=== PATIENT | male | born 1950 | race Caucasian/White ===

== ENCOUNTER 2018-04-09 09:02 | Inpatient (IN) | payer BC ==
[~2018-04-09] VITALS: Ht 190.5 cm; Wt 90.7 kg
[~2018-04-09 09:02] MED LIST: ALBU8.5H8 IH; ASPI81TA31 PO; CARV3.122 PO; FLUT1DIS28 INH; FURO-152 PO; HYDR-548 PO; LISI2.5T2 PO; PANT40TA2 PO; SIMV10TA6 PO; TAMS-3 PO
--- NOTE | 2018-04-09 09:27 | NUR ---
Dr Santoro is doing the MSE@this time.
[2018-04-09] MEDS ORDERED: NITR0.4T48 SL (09:35)
[2018-04-09] MEDS ORDERED: ASPI-612 PO (09:35)
[2018-04-09 10:00] LABS: CREATININE 1.9 mg/dL (0.6-1.3); POTASSIUM 3.6 mmol/L (3.5-5.1)
[2018-04-09] MEDS ORDERED: NITROGLYCERIN 0.4 MG/TAB BOTTLE SL ONE ×2 (10:15→10:26)
[2018-04-09] MEDS ORDERED: FUROSEMIDE 20 MG/2 ML VIAL IV ONE (10:15)
[2018-04-09 10:16] LABS: BILIRUBIN,DIRECT 0.7 mg/dL (0.0-0.2); TOTAL PROTEIN, SERUM 7.1 g/dL (6.4-8.2)
[2018-04-09 10:23] LABS: BASOPHILS % (AUTO) 0.3 % (0.0-2.0); EOSINOPHILS # (AUTO) 0.1 K/uL (0.0-0.7); EOSINOPHILS % (AUTO) 0.7 % (0.0-7.0); HEMATOCRIT 41.1 % (36.7-47.1); HEMOGLOBIN 13.9 g/dL (12.5-16.3); LYMPHOCYTES # (AUTO) 2.2 K/uL (20.0-40.0); LYMPHOCYTES % (AUTO) 17.4 % (20.5-51.5); MEAN CORPUSCULAR HEMOGLOBIN 31.4 uug (23.8-33.4); MEAN CORPUSCULAR HGB CONC 34 g/dL (32.5-36.3); MONOCYTES # (AUTO) 0.8 K/uL (2.0-10.0); MONOCYTES % (AUTO) 6.6 % (0.0-11.0); NEUTROPHILS # (AUTO) 9.6 K/uL (1.8-8.9); PLATELET COUNT (AUTO) 180 K/uL (152-348); RED BLOOD CELL COUNT(AUTO) 4.42 MIL/uL (4.06-5.63); WHITE BLOOD COUNT (AUTO) 12.8 K/uL (3.6-10.2)
[2018-04-09] MEDS ORDERED: FUROSEMIDE 40 MG/4 ML VIAL ONE (10:25)
[2018-04-09] MEDS ORDERED: ASPIRIN 81 MG TAB.CHEW ONE (10:25)
[2018-04-09] MEDS ORDERED: ASPIRIN 81 MG TAB.CHEW PO ONE (10:30)
--- NOTE | 2018-04-09 10:36 | NUR ---
Patient insisted to walk to bathroom to void. Urinal provided.
[2018-04-09] MEDS ORDERED: NITROGLYCERIN OINT 1 GM PACKET TP ONE ×2 (11:28→11:45)
--- NOTE | 2018-04-09 11:50 | NUR ---
Patient is eating lunch tray with good appetite.
[2018-04-09 12:29] VITALS: BP 111/73
--- NOTE | 2018-04-09 12:35 | NUR ---
NEW PATIENT TO ROOM 206 AWAKE ALERT ORTX4 COOPERATE WELLNO SOB OR PAIN AT THIS TIME VS TAKEN STABLE RA O2 SAT WAS 97% ON FALL PRECAUTION CALL MEDLEY IN REACH ANDINSTRUCTION TO CALL WHEN NEEDED
--- NOTE | 2018-04-09 13:00 | NUR ---
DR AURORA BOWMAN SEEN PATIENT AT THIS TIME
[2018-04-09] MEDS ORDERED: MAGNESIUM HYDROXIDE 30 ML LIQUID UDC PO PRN (13:30)
[2018-04-09] MEDS ORDERED: ACETAMINOPHEN 325 MG TABLET PO PRN (13:30)
[2018-04-09] MEDS ORDERED: ONDANSETRON 4 MG/2 ML VIAL IV PRN (13:30)
[2018-04-09] MEDS ORDERED: ZOLPIDEM 5 MG TABLET PO PRN (13:30)
[2018-04-09] MEDS ORDERED: Z GUARD REMEDY PASTE 57 GM TUBE TOP PRN (13:30)
[2018-04-09] MEDS ORDERED: HYDROCODONE/APAP 5-325MG TABLET PO PRN (13:30)
[2018-04-09] MEDS ORDERED: NITROGLYCERIN 0.4 MG/TAB BOTTLE SL PRN (13:30)
[2018-04-09 13:35] VITALS: BP 96/62
--- NOTE | 2018-04-09 13:45 | NUR ---
PATIENT C/O CHEST PAIN VS TAKEN BP WAS LOWER BUT STABLE DT COLBY LENTZ INFORM AND WILLSTART BUMEX HUMZA ORDER ,PHAMACY WAS CALLTO GET MEDICATION AND CLOSED OBSERVATION
--- NOTE | 2018-04-09 14:00 | NUR ---
STATE FEELBETTER NOPAIN PO FLD CHUN MOD AMT NO N/V
[2018-04-09] MEDS ORDERED: BUMETANIDE INJ 6 MG in IV DEXTROSE 5% 36 ML IV ONE (15:00)
[2018-04-09 16:35] VITALS: BP 104/63
--- NOTE | 2018-04-09 17:30 | NUR ---
STABLE CONDITION ,PAIN UNDER CONTROL NO ACUTE DISTRESS CONTINUE BUMEX IV PB SAFETY AND COMFORT MEASURE PROVIDED CALL MEDLEY WITHIN REACH
[2018-04-09] MEDS: CARVEDILOL 3.125 MG TABLET PO SCH (17:49)
[2018-04-09] MEDS ORDERED: POTASSIUM CHLORIDE 20 MEQ TAB.PRT.SR PO ONE (19:00)
--- NOTE | 2018-04-09 20:00 | NUR ---
Received pt alert and oriented x 3, in no acute distress. Made aware of plan of care. Tele noted to be sinus rhythm with occasional PVC's/PAC's. Safe environment implemented.
[2018-04-09 20:09] VITALS: BP 98/64
[2018-04-09] MEDS: SIMVASTATIN 10 MG TABLET PO SCH (20:47)
[2018-04-09] MEDS: TAMSULOSIN HCL 0.4 MG CAP.SR.24H PO SCH (20:47)
[2018-04-09] MEDS ORDERED: FLUTICASONE/SALMETEROL 250/50 INHALER INH SCH (21:00)
[2018-04-10 00:22] VITALS: BP 102/58
[2018-04-10 04:35] VITALS: BP 107/55
[2018-04-10] MEDS: PANTOPRAZOLE SODIUM 40 MG TABLET.DR PO SCH (06:21)
[2018-04-10 06:31] LABS: BASOPHILS % (AUTO) 0.3 % (0.0-2.0); EOSINOPHILS # (AUTO) 0.2 K/uL (0.0-0.7); EOSINOPHILS % (AUTO) 1.6 % (0.0-7.0); HEMATOCRIT 40.7 % (36.7-47.1); HEMOGLOBIN 13.6 g/dL (12.5-16.3); LYMPHOCYTES # (AUTO) 2.3 K/uL (20.0-40.0); LYMPHOCYTES % (AUTO) 16.8 % (20.5-51.5); MEAN CORPUSCULAR HEMOGLOBIN 31.3 uug (23.8-33.4); MEAN CORPUSCULAR HGB CONC 33 g/dL (32.5-36.3); MEAN CORPUSCULAR VOLUME 93.9 fL (73.0-96.2); MONOCYTES % (AUTO) 7.2 % (0.0-11.0); NEUTROPHILS # (AUTO) 10.3 K/uL (1.8-8.9); NEUTROPHILS % (AUTO) 74.1 % (38.5-71.5); PLATELET COUNT (AUTO) 155 K/uL (152-348); RED BLOOD CELL COUNT(AUTO) 4.34 MIL/uL (4.06-5.63); WHITE BLOOD COUNT (AUTO) 13.9 K/uL (3.6-10.2)
--- NOTE | 2018-04-10 06:35 | NUR ---
Stable condition. Tele noted to be sinus rhythm with occasional PAC's/PVC's. Safe environment implemented. Pt aware of plan of care.
--- NOTE | 2018-04-10 06:44 | NUR ---
Per tele monitor, pt had occasional runs of a-fib. No s/s of distress.
--- NOTE | 2018-04-10 08:00 | NUR ---
AWAKE ALERT COOPERATE WELL NO SOB OR CHEST PAIN RESTING WELL WITH CALL LIGHT IN REACH AND EAT BREAKFAST WELL THIS AM
[2018-04-10 08:22] LABS: CREATININE 1.6 mg/dL (0.6-1.3); MAGNESIUM 1.6 mg/dL (1.8-2.4); PHOSPHOROUS 2.6 mg/dL (2.5-4.9); POTASSIUM 3.6 mmol/L (3.5-5.1)
[2018-04-10] MEDS: ASPIRIN 325 MG TABLET PO SCH (08:41)
[2018-04-10] MEDS: FLUTICASONE/VILANTEROL 1 EACH BLST.W.DEV INH SCH (08:42)
[2018-04-10] MEDS: CARVEDILOL 3.125 MG TABLET PO SCH ×2 (08:42→17:48)
[2018-04-10] MEDS: LISINOPRIL 5 MG TABLET PO SCH (09:26)
[2018-04-10] MEDS ORDERED: FUROSEMIDE 20 MG/2 ML VIAL IV ONE (11:15)
[2018-04-10 11:35] VITALS: BP 95/55
[2018-04-10] MEDS: MAGNESIUM SULFATE/D5W 100 ML IV SCH ×2 (12:02→13:33)
--- NOTE | 2018-04-10 15:30 | NUR ---
DR RUTH SEEN PATIENT AND ORDER TO D/C [facility] AT THIS TIME
[2018-04-10 15:35] VITALS: BP 91/62
[2018-04-10] MEDS ORDERED: IPRATROPIUM BROMIDE 0.5 MG/2.5 ML NEBU NEB PRN (15:45)
[2018-04-10] MEDS ORDERED: ALBUTEROL SULFATE 2.5 MG/3 ML NEBU NEB PRN (15:45)
[2018-04-10] MEDS: FUROSEMIDE 20 MG/2 ML VIAL IV SCH (16:00)
[2018-04-10] MEDS ORDERED: CEFTRIAXONE 1 G in IV DEXTROSE 5% 50 ML IV SCH (17:00)
--- NOTE | 2018-04-10 17:30 | NUR ---
STABLE HEMODYNAMIC STATUS ,NO ACUTE DISTRESS ,PAIN UNDER CONTROL SAFET AND COMFORT MEASURE PROVIDED CALL LIGHT IN REACH
[2018-04-10 19:15] LABS: *BILIRUBIN,URIN NEGATIVE (NEGATIVE); *BLOOD, URINE NEGATIVE (NEGATIVE); *CLARITY,URINE SLIGHTLY CLOUDY (CLEAR); *COLOR,URINE YELLOW (YELLOW); *KETONES,URINE NEGATIVE (NEGATIVE); *PROTEIN,URINE NEGATIVE (NEGATIVE); LEUKOCYTE ESTERASE ,URINE NEGATIVE (NEGATIVE); NITRITE, URINE NEGATIVE (NEGATIVE); PH,URINE 5.5 (5.0-8.0); UGLUCOSE NEGATIVE (NEGATIVE)
[2018-04-10 19:20] LABS: BACTERIA,URINE NONE SEEN /HPF (NONE SEEN); RBC,URINE 0-3 /HPF (0-3); SQUAMOUS EPITHELIAL CELL,UR FEW /HPF (NONE SEEN); WBC,URINE 0-3 /HPF (0-3)
--- NOTE | 2018-04-10 19:51 | NUR ---
Received pt alert and oriented x3, denies pain and in no acute distress. Pt made aware of plan of care. Safe environment implemented. Call light within reach.
--- NOTE | 2018-04-10 20:00 | NUR ---
Received pt from [facility] for continuity of care. Received pt in bed, AAO x 4 watching television. No acute distress noted. Verbally responsive and able to make needs known. Noted with R wrist IV 20g heplock, patent and intact. Denies pain or discomfort at this time. All safety measures and fall precautions maintained. Call light and all personal belongings within reach. Will continue to monitor.
[2018-04-10 20:05] VITALS: BP 98/56
[2018-04-10] MEDS: TAMSULOSIN HCL 0.4 MG CAP.SR.24H PO SCH (20:37)
[2018-04-10] MEDS: SIMVASTATIN 10 MG TABLET PO SCH (20:37)
[2018-04-11 05:06] LABS: HEPATITIS A AB, IgM Negative (Negative); HEPATITIS B SURFACE AG Negative (Negative)
[2018-04-11 05:09] VITALS: BP 114/69
[2018-04-11] MEDS: PANTOPRAZOLE SODIUM 40 MG TABLET.DR PO SCH (06:19)
[2018-04-11 06:29] LABS: BASOPHILS % (AUTO) 0.3 % (0.0-2.0); EOSINOPHILS # (AUTO) 0.3 K/uL (0.0-0.7); EOSINOPHILS % (AUTO) 2.2 % (0.0-7.0); HEMATOCRIT 41.7 % (36.7-47.1); HEMOGLOBIN 13.9 g/dL (12.5-16.3); LYMPHOCYTES # (AUTO) 2.1 K/uL (20.0-40.0); LYMPHOCYTES % (AUTO) 18.3 % (20.5-51.5); MEAN CORPUSCULAR HEMOGLOBIN 31.4 uug (23.8-33.4); MEAN CORPUSCULAR HGB CONC 33 g/dL (32.5-36.3); MEAN CORPUSCULAR VOLUME 94.5 fL (73.0-96.2); MONOCYTES # (AUTO) 0.9 K/uL (2.0-10.0); MONOCYTES % (AUTO) 8.3 % (0.0-11.0); NEUTROPHILS # (AUTO) 8.1 K/uL (1.8-8.9); NEUTROPHILS % (AUTO) 70.9 % (38.5-71.5); PLATELET COUNT (AUTO) 150 K/uL (152-348); RED BLOOD CELL COUNT(AUTO) 4.41 MIL/uL (4.06-5.63); WHITE BLOOD COUNT (AUTO) 11.4 K/uL (3.6-10.2)
--- NOTE | 2018-04-11 06:34 | NUR ---
Slept comfortably throughout shift. No acute distress. Safety maintained. No complaints of pain throughout the night. All needs anticipated and met accordingly. Call light and all personal belongings within reach. Will continue to monitor.
[2018-04-11 06:41] LABS: CREATININE 1.3 mg/dL (0.6-1.3); MAGNESIUM 2.1 mg/dL (1.8-2.4); PHOSPHOROUS 2.8 mg/dL (2.5-4.9); POTASSIUM 2.9 mmol/L (3.5-5.1); TOTAL PROTEIN, SERUM 6.8 g/dL (6.4-8.2)
[2018-04-11 06:54] LABS: THYROID STIMULATING HORMONE 2.129 mIU/mL (0.358-3.740)
[2018-04-11 08:00] VITALS: BP 122/80
[2018-04-11] MEDS: ASPIRIN 325 MG TABLET PO SCH (09:14)
[2018-04-11] MEDS: CARVEDILOL 3.125 MG TABLET PO SCH (09:15)
[2018-04-11] MEDS: LISINOPRIL 5 MG TABLET PO SCH (09:15)
[2018-04-11] MEDS: FLUTICASONE/VILANTEROL 1 EACH BLST.W.DEV INH SCH (09:18)
--- NOTE | 2018-04-11 09:25 | NUR ---
Relayed pt's low potassium level of 2.9 to LAVELLE Andre with new T.O for Potassium 40mEq PO x1 dose now and to start Potassium 20mEq PO daily with IV Lasix. T.O. read back and verified. Noted and carried out.
[2018-04-11] MEDS ORDERED: POTASSIUM CHLORIDE 20 MEQ TAB.PRT.SR PO ONE (09:30)
[2018-04-11] MEDS: FUROSEMIDE 20 MG/2 ML VIAL IV SCH (09:52)
[2018-04-11 11:35] VITALS: BP 100/72
[2018-04-11] MEDS ORDERED: SIMV10TA6 PO (14:27)
[2018-04-11] MEDS ORDERED: HYDR-3326 PO (14:27)
[2018-04-11] MEDS ORDERED: POTA20TA10 PO (14:27)
--- NOTE | 2018-04-11 14:30 | NUR ---
Pt with order for discharge to [facility] Pt made aware.
--- NOTE | 2018-04-11 14:41 | NUR ---
Offered to arranged cardiology follow-up for pt. Pt stated he prefers to arrange his own appointments.
[2018-04-11] MEDS ORDERED: CEPHALEXIN MONOHYDRATE 500 MG CAPSULE PO SCH (14:45)
[2018-04-11] MEDS ORDERED: LACT1CAP59 PO (14:48)
[2018-04-11] MEDS ORDERED: CEPH500C2 PO (14:48)
[2018-04-11 16:14] VITALS: BP 104/64
--- NOTE | 2018-04-11 17:00 | NUR ---
Assisted pt to lobby where he was picked up by [facility] staff x1, Ronny. Pt preferred to walk to the lobby versus w/c. Pt left in stable condition. Denied pain. No s/s of acute distress noted. Right hand IV access removed. ID band removed. Pt left with his discharge instructions and all his belongings.
[2018-04-12] MEDS ORDERED: POTASSIUM CHLORIDE 20 MEQ TAB.PRT.SR PO SCH (09:00)
== END 2018-04-11 16:55 | DRG 291 ==
LOC: ER 09:02 → TELE 11:42 → MED 04-10 19:23
PROVIDERS: ADMIT Nurse Practitioner Acute Care; ATTEND Nurse Practitioner Acute Care
DX: I11.0 Hypertensive heart disease with heart failure (principal); N17.0 Acute kidney failure with tubular necrosis; J44.1 Chronic obstructive pulmonary disease with (acute) exacerbation; I50.43 Acute on chronic combined systolic (congestive) and diastolic (congestive) heart failure; F17.211 Nicotine dependence, cigarettes, in remission; I25.2 Old myocardial infarction; I25.10 Atherosclerotic heart disease of native coronary artery without angina pectoris; Z95.5 Presence of coronary angioplasty implant and graft; I25.5 Ischemic cardiomyopathy; Z87.01 Personal history of pneumonia (recurrent); E78.5 Hyperlipidemia, unspecified; Z79.82 Long term (current) use of aspirin; Z90.49 Acquired absence of other specified parts of digestive tract; N40.0 Benign prostatic hyperplasia without lower urinary tract symptoms; I27.22 Pulmonary hypertension due to left heart disease; I08.3 Combined rheumatic disorders of mitral, aortic and tricuspid valves; E83.42 Hypomagnesemia; D69.6 Thrombocytopenia, unspecified; E87.6 Hypokalemia; K21.9 Gastro-esophageal reflux disease without esophagitis; K27.9 Peptic ulcer, site unspecified, unspecified as acute or chronic, without hemorrhage or perforation; F32.9 Major depressive disorder, single episode, unspecified; F41.9 Anxiety disorder, unspecified; Z91.5 Personal history of self-harm; R74.0 Nonspecific elevation of levels of transaminase and lactic acid dehydrogenase [LDH]; E80.4 Gilbert syndrome; G89.29 Other chronic pain; M54.5 Low back pain
CPT/HCPCS: 36415; 70030-TC; 71045; 82652; 83735; 84100; 84443; 85025; 85730; 86705; 86709; 86803; 87086; 87340; 93005; 93307; A4663; G0378; J0696; J1940; J3475; J3490; J7040; J7060